=== PATIENT | male | born 1955 | race Caucasian/White ===

== ENCOUNTER 2021-10-22 12:21 | Inpatient (IN) | payer MEDICARE, OTHER ==
--- NOTE | 2021-10-22 12:42 | ED ---
General Adult HPI - General Chief complaint: Arrhythmia/Palpitations Stated complaint: Vtach/heart monitor Time Seen by Provider: 10/22/21 12:27 Source: patient, family, RN notes reviewed Mode of arrival: wheelchair Limitations: no limitations - History of Present Illness Initial comments: Patient is a pleasant 66-year-old male presenting to the emergency department with concerns with abnormal heart rate. Patient was on heart monitor and did receive a call concerning for V. tach with a heart rate of 220. Patient has been having very mild discomfort in his chest and occasional palpitations the past day or 2. Patient feels only a little bit lightheaded at this time. Patient states when symptoms worsen he does feel near syncopal. - Related Data Home Medications Medication Instructions Recorded Confirmed lisinopriL [Zestril] 5 mg PO DAILY 11/17/14 11/17/14 Previous Rx's Medication Instructions Recorded carvediloL [Coreg] 6.25 mg PO AC-BID #60 tab 06/25/14 Magnesium Chloride [Slow-Mag] 64 mg PO DAILY #9 tablet.er 11/21/14 Sotalol [Betapace] 120 mg PO BID@0600,1800 #9 tab 11/21/14 Spironolactone [Aldactone] 12.5 mg PO DAILY #9 tab 11/21/14 carvediloL [Coreg] 3.125 mg PO BID-W/MEALS #9 tab 11/21/14 lisinopriL [Zestril] 2.5 mg PO Q24H tab 11/21/14 Allergies Allergy/AdvReac Type Severity Reaction Status Date / Time atorvastatin calcium AdvReac muscle Verified 10/22/21 12:24 [From Lipitor] cramps Review of Systems ROS Statement: Those systems with pertinent positive or pertinent negative responses have been documented in the HPI. ROS Other: All systems not noted in ROS Statement are negative. Constitutional: Denies: fever Eyes: Denies: eye pain ENT: Denies: ear pain Respiratory: Denies: cough Cardiovascular: Reports: as per HPI, chest pain Endocrine: Denies: fatigue Gastrointestinal: Denies: abdominal pain Genitourinary: Denies: dysuria Musculoskeletal: Denies: back pain Skin: Denies: rash Neurological: Denies: headache Past Medical History Additional Past Medical History / Comment(s): see Dr Seals H & P, hx. migrai alfredo, sinus problems History of Any Multi-Drug Resistant Organisms: None Reported Past Surgical History: Heart Catheterization, Orthopedic Surgery Additional Past Surgical History / Comment(s): right knee surg and left ankle s urgery Past Anesthesia/Blood Transfusion Reactions: No Reported Reaction Past Psychological History: No Psychological Hx Reported Past Alcohol Use History: Occasional Past Drug Use History: None Reported - Past Family History Father Family Medical History: Cancer Additional Family Medical History / Comment(s): pancreas General Exam Limitations: no limitations General appearance: alert, in no apparent distress Head exam: Present: normocephalic Eye exam: Present: normal appearance, PERRL Neck exam: Present: normal inspection Respiratory exam: Present: normal lung sounds bilaterally Cardiovascular Exam: Present: regular rate, normal rhythm Expanded Peripheral pulses: 2+: Radial (R), Radial (L), Posterior Tibialis (R), Posterior Tibialis (L), Dorsalis Pedis (R), Dorsalis Pedis (L) GI/Abdominal exam: Present: soft. Absent: tenderness Extremities exam: Present: normal inspection. Absent: pedal edema, calf tenderness Neurological exam: Present: alert Psychiatric exam: Present: normal affect, normal mood Skin exam: Present: normal color Course Vital Signs 10/22/21 10/22/21 12:24 12:42 Temperature 98.3 F Pulse Rate 54 L 65 Respiratory 16 18 Rate Blood Pressure 103/65 135/77 O2 Sat by Pulse 97 97 Oximetry - Reevaluation(s) Reevaluation #1: 10/22/21 12:42 Dr. Romero is present and evaluating patient. EKG Findings - EKG Comments: EKG Findings:: Sinus rhythm with a rate of 68. FL 184. QRS 114. QT 391. QTC 407. Normal axis. Normal QRS. No acute ST change. Medical Decision Making - Medical Decision Making Patient reevaluated and updated. Case was again discussed with Dr. Romero who will consider taking patient later for heart catheterization. Dr. Benjamin has been paged for admission covering Dr. Coppola. - Lab Data Result diagrams: 10/22/21 12:47 10/22/21 12:47 Lab Results 10/22/21 10/22/21 10/22/21 Range/Units 12:47 12:47 12:47 WBC 5.3 (3.8-10.6) k/uL RBC 3.89 L (4.30-5.90) m/uL Hgb 12.0 L (13.0-17.5) gm/dL Hct 35.5 L (39.0-53.0) % MCV 91.3 (80.0-100.0) fL MCH 30.8 (25.0-35.0) pg MCHC 33.7 (31.0-37.0) g/dL RDW 12.7 (11.5-15.5) % Plt Count 326 (150-450) k/uL MPV 6.9 Neutrophils % 71 % Lymphocytes % 17 % Monocytes % 6 % Eosinophils % 3 % Basophils % 1 % Neutrophils # 3.8 (1.3-7.7) k/uL Lymphocytes # 0.9 L (1.0-4.8) k/uL Monocytes # 0.3 (0-1.0) k/uL Eosinophils # 0.2 (0-0.7) k/uL Basophils # 0.1 (0-0.2) k/uL PT 10.8 (9.0-12.0) sec INR 1.0 (<1.2) APTT 23.3 (22.0-30.0) sec Sodium 139 (137-145) mmol/L Potassium 4.0 (3.5-5.1) mmol/L Chloride 104 (98-107) mmol/L Carbon Dioxide 29 (22-30) mmol/L Anion Gap 6 mmol/L BUN 11 (9-20) mg/dL Creatinine 0.55 L (0.66-1.25) mg/dL Est GFR (CKD-EPI)AfAm >90 (>60 ml/min/1.73 sqM) Est GFR (CKD-EPI)NonAf >90 (>60 ml/min/1.73 sqM) Glucose 103 H (74-99) mg/dL Calcium 8.8 (8.4-10.2) mg/dL Magnesium 1.9 (1.6-2.3) mg/dL Total Bilirubin 0.4 (0.2-1.3) mg/dL AST 26 (17-59) U/L ALT 22 (4-49) U/L Alkaline Phosphatase 106 (38-126) U/L Troponin I (0.000-0.034) ng/mL Total Protein 6.4 (6.3-8.2) g/dL Albumin 3.6 (3.5-5.0) g/dL Free T4 1.33 (0.78-2.19) ng/dL Free T3 pg/mL 3.9 (2.8-5.3) pg/ml 10/22/21 Range/Units 12:47 WBC (3.8-10.6) k/uL RBC (4.30-5.90) m/uL Hgb (13.0-17.5) gm/dL Hct (39.0-53.0) % MCV (80.0-100.0) fL MCH (25.0-35.0) pg MCHC (31.0-37.0) g/dL RDW (11.5-15.5) % Plt Count (150-450) k/uL MPV Neutrophils % % Lymphocytes % % Monocytes % % Eosinophils % % Basophils % % Neutrophils # (1.3-7.7) k/uL Lymphocytes # (1.0-4.8) k/uL Monocytes # (0-1.0) k/uL Eosinophils # (0-0.7) k/uL Basophils # (0-0.2) k/uL PT (9.0-12.0) sec INR (<1.2) APTT (22.0-30.0) sec Sodium (137-145) mmol/L Potassium (3.5-5.1) mmol/L Chloride (98-107) mmol/L Carbon Dioxide (22-30) mmol/L Anion Gap mmol/L BUN (9-20) mg/dL Creatinine (0.66-1.25) mg/dL Est GFR (CKD-EPI)AfAm (>60 ml/min/1.73 sqM) Est GFR (CKD-EPI)NonAf (>60 ml/min/1.73 sqM) Glucose (74-99) mg/dL Calcium (8.4-10.2) mg/dL Magnesium (1.6-2.3) mg/dL Total Bilirubin (0.2-1.3) mg/dL AST (17-59) U/L ALT (4-49) U/L Alkaline Phosphatase (38-126) U/L Troponin I <0.012 (0.000-0.034) ng/mL Total Protein (6.3-8.2) g/dL Albumin (3.5-5.0) g/dL Free T4 (0.78-2.19) ng/dL Free T3 pg/mL (2.8-5.3) pg/ml - Radiology Data Radiology results: image reviewed Disposition Clinical Impression: Ventricular tachycardia, Chest pain Disposition: ADMITTED IP TO THIS [facility] Condition: Serious Is patient prescribed a controlled substance at d/c from ED?: No Referrals: Constantin Coppola MD [Primary Care Provider] - 1-2 days Time of Disposition: 13:38
[2021-10-22 13:01] LABS: Basophils # (A) 0.1 k/uL (0-0.2); Basophils % (A) 1 %; Eosinophils # (A) 0.2 k/uL (0-0.7); Eosinophils % (A) 3 %; HCT 35.5 % (39.0-53.0); Lymphocytes # (A) 0.9 k/uL (1.0-4.8); Lymphocytes % (A) 17 %; MCH 30.8 pg (25.0-35.0); MCHC 33.7 g/dL (31.0-37.0); MCV 91.3 fL (80.0-100.0); Mean Platelet Volume 6.9; Monocytes # (A) 0.3 k/uL (0-1.0); Monocytes % (A) 6 %; Neutrophils # (A) 3.8 k/uL (1.3-7.7); Neutrophils % (A) 71 %; Platelet Count 326 k/uL (150-450); RBC 3.89 m/uL (4.30-5.90); RDW 12.7 % (11.5-15.5); WBC 5.3 k/uL (3.8-10.6)
[2021-10-22 13:12] LABS: ALT 22 U/L (4-49); AST 26 U/L (17-59); African American GFR (CKD) >90 (>60 ml/min/1.73 sqM); Albumin 3.6 g/dL (3.5-5.0); Alkaline Phosphatase 106 U/L (38-126); Anion Gap 6 mmol/L; Blood Urea Nitrogen 11 mg/dL (9-20); Calcium 8.8 mg/dL (8.4-10.2); Carbon Dioxide 29 mmol/L (22-30); Chloride 104 mmol/L (98-107); Glucose 103 mg/dL (74-99); Magnesium 1.9 mg/dL (1.6-2.3); Non-African American GFR(CKD) >90 (>60 ml/min/1.73 sqM); Sodium 139 mmol/L (137-145); Total Bilirubin 0.4 mg/dL (0.2-1.3); Total Protein 6.4 g/dL (6.3-8.2)
[2021-10-22 13:15] LABS: Partial Thromboplastin Time 23.3 sec (22.0-30.0); Prothrombin Time 10.8 sec (9.0-12.0)
[2021-10-22 13:29] LABS: T4, Free (Free Thyroxine) 1.33 ng/dL (0.78-2.19)
[2021-10-22] MEDS ORDERED: NALOXONE 0.4 MG/ML 1 ML VIAL IV PRN (13:39)
[2021-10-22] MEDS: SODIUM CHLORIDE 0.9% 1,000 ML IV SCH ×2 (13:54→21:46)
--- NOTE | 2021-10-22 13:55 | XR ---
EXAMINATION TYPE: XR chest 2V DATE OF EXAM: 10/22/2021 COMPARISON: Chest x-ray May 02, 2012 HISTORY: Dysrhythmia. TECHNIQUE: Frontal and lateral views of the chest are obtained. FINDINGS: There is mild chronic parenchymal change without suspicious new focal air space opacity, p leural effusion, or pneumothorax seen. I suspect two new small adjacent nodules lateral right upper lung. Cardiac silhouette size remains within normal limits. The osseous structures are intact. IMPRESSION: No acute process. Possible new lateral right upper lung nodules. Nonemergent follow-up c hest CT advised to rule out neoplasm.
[2021-10-22] MEDS ORDERED: ALPRAZolam 0.25 MG TAB PO PRN (14:13)
[2021-10-22] MEDS ORDERED: ASPIRIN 325 MG TAB PO STA (14:13)
[2021-10-22] MEDS ORDERED: NITROGLYCERIN SL TABS 0.4 MG TAB SUBLINGUAL PRN ×2 (14:13→18:32)
[2021-10-22] MEDS ORDERED: ALPRAZolam 0.5 MG TAB PO PRN (14:13)
[2021-10-22] MEDS: SODIUM CHLORIDE 0.9% 1,000 ML in EMPTY BAG 1 BAG IV SCH (14:31)
--- NOTE | 2021-10-22 14:40 | P.CRDCN ---
History of Present Illness History of present illness: HISTORY OF PRESENTING ILLNESS This is a pleasant 66-year-old male past medical history significant for ventricular arrhythmia/nonsustained ventricular tachycardia status post ablation 2014, nonischemic cardiomyopathy, hypertension, dyslipidemia. He follows in the office with Dr. Romero. We have been asked to see in consultation for [facility]. Patient presents emergency department after a near syncopal episode with symptoms of dizziness and feeling as if he may pass out. Patient has had recu rrent episodes. He was evaluated by Dr. Romero and underwent placement of an event monitor. Yesterday morning around 10am patient had acute onset dizziness, and felt as if he may black out, family witnesses episode and noticed his heart beating rapidly. Patient did not lose conciousness, he states it took him about 10 minutes to feel able to stand and walk. He was later received a call that he went into [facility] and to present to the emergency department. Patient states he has had 3 episodes prior to his event monitor placed and this is the 4th occurrance. He denies any chest pain, nausea, diaphoresis, vomiting. He denies any history of CAD, [place], Stroke or diabetes. No significant family cardiac history. He has never loss consciousness with these episodes. Event monitor report revealed ventricular tachycardia greater than 60 seconds on 10/21 at 12:30Am overnight. Another episode of ventricular tachycardia 18 beats noted on 10/21 at 9:26 AM DIAGNOSTICS EKG on admission reveals sinus rhythm HR 68, non-specific T wave abnormality, no prolonged QT Telemetry tracings indicate sinus mechanism, no further Vtach noted Chest xray no acute heart failure or consolidation noted, 2 small adjacent nodu les lateral right upper lung Laboratory reviewed, Troponin negative, WBC 5.3, hemoglobin 12, platelets 326, sodium 139, potassium 4.0, BUN 11, serum creatinine 0.5, magnesium 1.9, troponin negative, TSH within normal limits Current home cardiac medications include pravastatin 80 mg daily, sotalol 80 mg twice a day, aspirin 81 mg twice a day. Most recent stress test in the office 09/06/2021 revealed no evidence of stress- induced ischemia. Normal left ventricular systolic function. Echocardiogram 04/2019 in the office revealed normal EF, moderate mitral regurgitation Cardiac catheterization in 2012 revealed normal coronary arteries REVIEW OF SYSTEMS At the time of my exam, all symptoms have resolved. CONSTITUTIONAL: Denies fever or chills. CARDIOVASCULAR: Denies chest pain, shortness of breath, orthopnea, PND or palpitations. RESPIRATORY: Denies cough. GASTROINTESTINAL: Denies abdominal pain, diarrhea, constipation, nausea or vomiting. MUSCULOSKELETAL: Denies myalgias. NEUROLOGIC: Denies numbness, tingling, headacbe or weakness. ENDOCRINE: Denies fatigue, weight change, polydipsia or polyurina. GENITOURINARY: Denies burning, hematuria or urgency with micturation. HEMATOLOGIC: Denies history of anemia or bleeding. PHYSICAL EXAMINATION Blood pressure 135/77, heart 65, afebrile, saturation 97% on room air CONSTITUTIONAL: No apparent distress. HEENT: Head is normocephalic. Pupils are equal, round. Sclerae anicteric. Mucous membranes of the mouth are moist. No JVD. No carotid bruit. CHEST EXAMINATION: Lungs are clear to auscultation. No chest wall tenderness is noted on palpation or with deep breathing. HEART EXAMINATION: Regular rate and rhythm. S1, S2 heard. No murmurs, gallops or rub. ABDOMEN: Soft, nontender. Positive bowel sounds. EXTREMITIES: 2+ peripheral pulses, no lower extremity edema and no calf tenderness. NEUROLOGIC EXAMINATION: Patient is awake, alert and oriented x3. ASSESSMENT Near syncope Sustained ventricular tachycardia Episodes of non-sustained ventricular tachycardia History of nonsustained ventricular tachycardia status post ablation in 2015 History of nonischemic cardiomyopathy with improved EF Dyslipidemia PLAN Plan for cardiac catheterization to rule out ischemia with Dr. Romero today, patient is agreeable Obtain 2D echocardiogram and doppler study to assess cardiac structure and function. Hold Sotalol for now pending cath I have discussed the risks, benefits and alternative therapies for the above- mentioned procedure and for both sedation/analgesia as well as necessary blood product administration, if indicated, as they pertain to this patient. The patient has indicated understanding and acceptance of the risks and procedures discussed. Questions have been answered appropriately and he is agreeable to move forward with the above-stated procedure. Further recommendations based on clinical course Nurse practitioner note has been reviewed by physician. Signing provider agrees with the documented findings, assessment, and plan of care. Past Medical History Additional Past Medical History / Comment(s): see Dr Seals H & P, hx. migraines, sinus problems History of Any Multi-Drug Resistant Organisms: None Reported Past Surgical History: Heart Catheterization, Orthopedic Surgery Additional Past Surgical History / Comment(s): right knee surg and left ankle surgery Past Anesthesia/Blood Transfusion Reactions: No Reported Reaction Past Psychological History: No Psychological Hx Reported Past Alcohol Use History: Occasional Past Drug Use History: None Reported - Past Family History Father Family Medical History: Cancer Additional Family Medical History / Comment(s): pancreas Medications and Allergies Home Medications Medication Instructions Recorded Confirmed Type carvediloL [Coreg] 6.25 mg PO AC-BID #60 tab 06/25/14 11/17/14 Rx lisinopriL [Zestril] 5 mg PO DAILY 11/17/14 11/17/14 History Magnesium Chloride [Slow-Mag] 64 mg PO DAILY #9 tablet.er 11/21/14 Rx Sotalol [Betapace] 120 mg PO BID@0600,1800 #9 tab 11/21/14 Rx Spironolactone [Aldactone] 12.5 mg PO DAILY #9 tab 11/21/14 Rx carvediloL [Coreg] 3.125 mg PO BID-W/MEALS #9 tab 11/21/14 Rx lisinopriL [Zestril] 2.5 mg PO Q24H tab 11/21/14 Rx Allergies Allergy/AdvReac Type Severity Reaction Status Date / Time atorvastatin calcium AdvReac muscle Verified 10/22/21 12:24 [From Lipitor] cramps Physical Exam Vitals: Vital Signs Temp Pulse Resp BP Pulse Ox 10/22/21 12:42 65 18 135/77 97 10/22/21 12:24 98.3 F 54 L 16 103/65 97 Intake and Output 10/21/21 10/22/21 10/22/21 22:59 06:59 14:59 Other: Weight 77.111 kg Results 10/22/21 12:47 10/22/21 12:47 Cardiac Enzymes 10/22/21 10/22/21 Range/Units 12:47 12:47 AST 26 (17-59) U/L Troponin I <0.012 (0.000-0.034) ng/mL Coagulation 10/22/21 Range/Units 12:47 PT 10.8 (9.0-12.0) sec APTT 23.3 (22.0-30.0) sec CBC 10/22/21 Range/Units 12:47 WBC 5.3 (3.8-10.6) k/uL RBC 3.89 L (4.30-5.90) m/uL Hgb 12.0 L (13.0-17.5) gm/dL Hct 35.5 L (39.0-53.0) % Plt Count 326 (150-450) k/uL Comprehensive Metabolic Panel 10/22/21 Range/Units 12:47 Sodium 139 (137-145) mmol/L Potassium 4.0 (3.5-5.1) mmol/L Chloride 104 (98-107) mmol/L Carbon Dioxide 29 (22-30) mmol/L BUN 11 (9-20) mg/dL Creatinine 0.55 L (0.66-1.25) mg/dL Glucose 103 H (74-99) mg/dL Calcium 8.8 (8.4-10.2) mg/dL AST 26 (17-59) U/L ALT 22 (4-49) U/L Alkaline Phosphatase 106 (38-126) U/L Total Protein 6.4 (6.3-8.2) g/dL Albumin 3.6 (3.5-5.0) g/dL Current Medications Generic Name Dose Route Start Last Admin Trade Name Freq PRN Reason Stop Dose Admin Sodium Chloride 1,000 mls @ 75 mls/hr 10/22/21 13:45 Saline 0.9% IV .[id number] MADELIN Naloxone HCl 0.2 mg 10/22/21 13:39 Naloxone 0.4 Mg/Ml 1 Ml Vial IV Q2M PRN Opioid Reversal Intake and Output 10/21/21 10/22/21 10/22/21 22:59 06:59 14:59 Other: Weight 77.111 kg Patient Weight 10/23/21 06:59 Weight 77.111 kg 10/22/21 12:47 10/22/21 12:47
[2021-10-22] MEDS ORDERED: HEPARIN SODIUM 1,000 UN/ML (10ML VL) ONE (16:14)
[2021-10-22] MEDS ORDERED: VERAPAMIL 2.5 MG/ML 2 ML AMP ONE (16:14)
--- NOTE | 2021-10-22 16:31 | P.HPIM ---
History of Present Illness H&P Date: 10/22/21 Chief Complaint: Near syncope This is a pleasant 66-year-old patient who follows with Dr. Constantin Coppola. Chronic stable medical conditions include hypertension, hyperlipidemia, osteomyelitis. Patient had a left knee replacement done by Dr. Medina out of [facility] on September 27. Patient is accompanied in the ER by his and daughter. Patient did have a nonsustained ventricular tachycardia ablation in 2014. Also no nausea no ischemic cardiomyopathy and follows with Dr. Johnston local grounds manager. Patient been having episodes of dizziness and near passing out. Episodes have been recurrent. Patient had a event monitor placed. He had another episode yesterday morning and nearly passed out. Heart was running fast. Patient has not lost consciousness. It was a few minutes after which patient felt back to his normal self. Patient was called to say that he had an episode of V. tach. No prior history of CAD. Event monitor revealed episodes of forgetting to 60 seconds and another episode for 18 beats. Patient due to for cardiac catheterization later today.. No chest pain or shortness of breath. 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 Family history: Cancer pancreas Physical examination: VITAL SIGNS: 98.3, 54, 16, 10 3 x 65, 97% room air GENERAL: And BMI 24.4, laying in bed awake, comfortable. EYES: Pupils equal. Conjunctiva normal. HEENT: External appearance of nose and ears normal, oral cavity grossly normal. NECK: JVD not raised; masses not palpable. HEART: First and second heart sounds are normal; no edema. LUNGS: Respiratory rate normal; clear to auscultation. ABDOMEN: Soft, nontender, liver spleen not palpable, no masses palpable. PSYCH: Alert and oriented x3; mood and affect normal. MUSCULOSKELETAL:No Clubbing/cyanosis;muscles-grossly intact. Incision of the left knee with Steri-Strips. Evidence of OA no joints NEUROLOGICAL: Cranial nerves grossly intact; no facial asymmetry, power and sensation grossly intact. LYMPHATICS: No lymph nodes palpable in the axilla and neck INVESTIGATIONS, reviewed in the clinical context: EKG tracing personally reviewed by me-normal sinus rhythm. Chest x-ray film personally reviewed by me-lung rivers clear WBC 5.3 hemoglobin 12 platelets 326 potassium 4 creatinine 0.5 Troponin I less than 0.0122 TSH 1.5 Assessment and plan: -Recurrent ventricular tachycardia/sustained. Patient been having episodes of near syncope dizziness for some time. This was picked up on event monitor. Patient for a cardiac catheterization today. Cardiology consulted. -Hyperlipidemia Pravachol 80 mg daily at bedtime -Primary osteoarthritis Tylenol when necessary -09/27/2021 patient underwent left total knee arthroplasty -IV heparin monitoring Follow PTT Resume home medications. Hold sotalol. IV heparin. For cardiac catheterization later today. Care was discussed with the patient and family the bedside. Follow with cardiology. Past Medical History Past Medical History: Hyperlipidemia, Hypertension Additional Past Medical History / Comment(s): Ventricular arrhythmia/nonsustained VT, NSVT, nonischemic cardiomyopathy, mitral valve prolapse, "dizzy spells", past HTN but no longer, sinus problems, migraines History of Any Multi-Drug Resistant Organisms: None Reported Past Surgical History: Cardiac Ablation, Heart Catheterization, Joint Replacement, Orthopedic Surgery Additional Past Surgical History / Comment(s): R knee ligament/tendon reconstruction with screw and now total R knee, recent total L knee 09/2021, L ankle total joint Past Anesthesia/Blood Transfusion Reactions: No Reported Reaction Smoking Status: Never smoker - Past Family History Mother Family Medical History: No Reported History Additional Family Medical History / Comment(s): Mother was healthy Father Family Medical History: Cancer Additional Family Medical History / Comment(s): pancreas Medications and Allergies Home Medications Medication Instructions Recorded Confirmed Type Aspirin EC [Ecotrin Low Dose] 81 mg PO BID 10/22/21 10/22/21 History Docusate [Colace] 100 mg PO BID PRN 10/22/21 10/22/21 History Pravastatin Sodium [Pravachol] 80 mg PO HS 10/22/21 10/22/21 History Sotalol [Betapace] 80 mg PO BID 10/22/21 10/22/21 History Allergies Allergy/AdvReac Type Severity Reaction Status Date / Time atorvastatin calcium AdvReac muscle Verified 10/22/21 14:24 [From Lipitor] cramps Physical Exam Vitals: Vital Signs Temp Pulse Resp BP Pulse Ox 10/22/21 14:39 69 18 116/74 97 10/22/21 12:42 65 18 135/77 97 10/22/21 12:24 98.3 F 54 L 16 103/65 97 Intake and Output 10/22/21 10/22/21 10/22/21 06:59 14:59 22:59 Other: Weight 77.111 kg 77.111 kg Results CBC & Chem 7: 10/22/21 12:47 10/22/21 12:47 Labs: Abnormal Lab Results - Last 24 Hours (Table) 10/22/21 10/22/21 Range/Units 12:47 12:47 RBC 3.89 L (4.30-5.90) m/uL Hgb 12.0 L (13.0-17.5) gm/dL Hct 35.5 L (39.0-53.0) % Lymphocytes # 0.9 L (1.0-4.8) k/uL Creatinine 0.55 L (0.66-1.25) mg/dL Glucose 103 H (74-99) mg/dL Thrombosis Risk Factor Assmnt - Choose All That Apply Any of the Below Risk Factors Present?: Yes Other Risk Factors: Yes Each Risk Factor Represents 2 Points: Age 61-74 years Other congenital or acquired thrombophilia - If yes, enter type in comment: No Thrombosis Risk Factor Assessment Total Risk Factor Score: 2 Thrombosis Risk Factor Assessment Level: Low Risk
[2021-10-22] MEDS ORDERED: MIDAZOLAM 2 MG/2 ML VIAL IV ONE (17:42)
[2021-10-22] MEDS ORDERED: LIDOCAINE 1% INJ 10MG/ML (5 ML VIAL-PF) SQ ONE (17:43)
[2021-10-22] MEDS ORDERED: VERAPAMIL SYRINGE (5 MG/10 ML) INTRAARTER ONE (17:44)
[2021-10-22] MEDS ORDERED: IV FLUID CONTINUATION 850 ML IV ONE (17:47)
[2021-10-22] MEDS: HEPARIN SODIUM 1,000 UN/ML (10ML VL) IV ONE ×3 (17:47→18:29)
[2021-10-22] MEDS ORDERED: IOPAMIDOL-370 125ML BTL INJ ONE (18:14)
[2021-10-22] MEDS ORDERED: CLOPIDOGREL 75 MG TAB ONE (18:20)
[2021-10-22] MEDS ORDERED: IOPAMIDOL-370 100ML BTL INJ ONE (18:22)
[2021-10-22] MEDS ORDERED: CLOPIDOGREL 75 MG TAB PO ONE (18:22)
[2021-10-22] MEDS ORDERED: MAG HYDROX/AL HYDROX/SIMETH 30 ML CUP PO PRN (18:32)
[2021-10-22] MEDS ORDERED: RX INFO: IV CONTRAST WAS GIVEN 1 EACH MISC MISCELLANE PRN (18:32)
[2021-10-22] MEDS ORDERED: ATROPINE SULFATE 0.1 MG/ML 10ML SYRINGE IV PRN (18:32)
[2021-10-22] MEDS ORDERED: ZOLPIDEM 5 MG TAB PO PRN (18:32)
[2021-10-22] MEDS ORDERED: SODIUM CHLORIDE 0.9% 1,000 ML in EMPTY BAG 1 BAG IV SCH (18:45)
--- NOTE | 2021-10-22 18:58 | CA ---
Transthoracic Echo Report Name: Mike Francisco Age: 66 Gender: M : 1955 Exam Date: 10/22/2021 14:35 Exam Location: [facility] Ht (in): 60 Wt (lb): 170 Ordering Physician: Yasmeen Parish Attending/Referring Phys: Excellence Consultant Tamia Benjamin RDCS Procedure CPT: Indications: syncope. V tach. LV function Cardiac Hx: Technical Quality: Contrast 1: Total Dose (mL): Contrast 2: Total Dose (mL): MEASUREMENTS (Male / Female) Normal Values 2D ECHO LV Diastolic Diameter PLAX 5.5 cm 4.2 - 5.9 / 3.9 - 5.3 cm LV Systolic Diameter PLAX 4.3 cm IVS Diastolic Thickness 1.2 cm 0.6 - 1.0 / 0.6 - 0.9 cm LVPW Diastolic Thickness 1.5 cm 0.6 - 1.0 / 0.6 - 0.9 cm LV Relative Wall Thickness 0.5 RV Internal Dim ED PLAX 3.9 cm LA Systolic Diameter LX 3.9 cm 3.0 - 4.0 / 2.7 - 3.8 cm LA Volume 68.1 cm??? 18 - 58 / 22 - 52 cm??? M-MODE Aortic Root Diameter MM 3.6 cm MV E Point Septal Separation 0.9 cm AV Cusp Separation MM 2.5 cm DOPPLER MV Area PHT 3.3 cm??? Mitral E Point Velocity 44.2 cm/s Mitral A Point Velocity 75.2 cm/s Mitral E to A Ratio 0.6 MV Deceleration Time 231.4 ms MV E' Velocity 4.9 cm/s Mitral E to MV E' Ratio 9.0 TR Peak Velocity 233.6 cm/s TR Peak Gradient 21.8 mmHg Right Ventricular Systolic Press 26.8 mmHg FINDINGS Left Ventricle Normal Left ventricular size, mild wall thickness, left ventricular ejection fraction is estimated at 50-55%. Right Ventricle Normal right ventricular size and function. Right Atrium Normal right atrial size. Left Atrium Mildly increased left atrial volume. Mitral Valve Mild mitral valve prolapse. Moderate mitral regurgitation. Aortic Valve Trileaflet aortic valve. Tricuspid Valve Structurally normal tricuspid valve. Mild tricuspid regurgitation. Pulmonic Valve Pulmonic valve not well visualized. Pericardium Normal pericardium. Aorta Normal size aortic root and proximal ascending aorta. CONCLUSIONS Normal left ventricular dimension and systolic function Moderate mitral regurgitation Previewed by: Dr. Glenn Romero MD (Electronically Signed) Final Date: 22 October 2021 18:57
--- NOTE | 2021-10-22 19:03 | P.PCN ---
Date of Procedure: 10/22/21 Operative Findings: CARDIAC CATHETERIZATION AND PERCUTANEOUS CORONARY INTERVENTION PERFORMING PHYSICIAN: Glenn Romero MD, [facility] PROCEDURE PERFORMED: 1. Selective right and left coronary angiogram 2. Left heart catheterization 3. Successful stenting of proximal LCx using 2.5 x 23 mm Xience WILMER which with an excellent angiographic results INDICATION: This is a 66-year-old gentleman with carotid atherosclerosis as well as hypertension and dyslipidemia and history of cardiac arrhythmia underwent in the past PVC ablation was seen in the office recently for recurrent syncope concerning for cardiac syncope. He underwent an event monitor and yesterday he did have another episode of syncope associated with sustained ventricular tachycardia. COMPLICATION: None APPROACH: The right radial artery LEVEL OF SEDATION: Moderate with the sedation time off 40 minutes PROCEDURE DESCRIPTION: After obtaining an informed consent the patient was brought to the cardiac geophysical laboratory director. The right radial artery was cannulated using micropuncture technique, the micro- puncture wire passed easily then I placed a 6-Swiss sheath. I gave the patient 2 mg of verapamil intra-arterial and initially 3000 use of heparin IV and then additional 4000 use of heparin IV. Continuous ACT monitoring was performed throughout the procedure. Selective right and left coronary angiogram performed using JR4 and JL 3.5. Subsequently I did left heart catheterization using 6- Swiss pigtail catheter. Then I intervened on the left circumflex. SELECTIVE CORONARY ANGIOGRAM: The right coronary artery: Is a large caliber vessel and a dominant vessel. 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 The left circumflex proximally has a tight lesion appeared to be in the range of 70-80%. After that is angiographically normal The left anterior descending artery: Is angiographically normal. Gives rises into the first and second diagonal branches and both appeared to be angiographically normal HEMODYNAMICS: The LVEDP was about 16 mmHg was no significant gradient across aortic valve PCI OF THE LCx: Anticoagulation was initiated using heparin with continuous ACT monitoring. Subsequently I did engage the left circumflex using an a.l. 0.7 guide. I wire it using a run-through wire. Subsequently I did direct stenting of the lesion using 2.5 x 23 mm stent where the stent was positioned under fluoroscopy guidance and deployed under fluoroscopy guidance. 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 Severe disease involving the proximal left circumflex. I performed successful stenting #2 mildly elevated left-sided filling pressure POSTPROCEDURE MANAGEMENT: #1 dual antiplatelet therapy using aspirin and Plavix for at least 6 month #2 aggressive cholesterol control #3 follow-up with the patient
[2021-10-22] MEDS ORDERED: ATORVASTATIN 80 MG TAB PO SCH (21:00)
[2021-10-22] MEDS: SOTALOL 80 MG TAB PO SCH (21:45)
[2021-10-22] MEDS: PRAVASTATIN SODIUM 80 MG TAB PO SCH (21:46)
--- NOTE | 2021-10-23 03:47 | P.PN ---
Subjective HISTORY OF PRESENTING ILLNESS This is a pleasant 66-year-old male past medical history significant for ventricular arrhythmia/nonsustained ventricular tachycardia status post ablation 2014, nonischemic cardiomyopathy, hypertension, dyslipidemia. He follows in the office with Dr. Romero. We have been asked to see in consultation for V tach. Patient presents emergency department after a near syncopal episode with symptoms of dizziness and feeling as if he may pass out. Patient has had recurrent episodes. He was evaluated by Dr. Romero and underwent placement of an event monitor. Yesterday morning around 10am patient had acute onset dizziness, and felt as if he may black out, family witnesses episode and noticed his heart beating rapidly. Patient did not lose conciousness, he states it took him about 10 minutes to feel able to stand and walk. He was later received a call that he went into V Tach and to present to the emergency department. Patient states he has had 3 episodes prior to his event monitor placed and this is the 4th occurrance. He denies any chest pain, nausea, diaphoresis, vomiting. He denies any history of CAD, AR, Stroke or diabetes. No significant family cardiac history. He has never loss consciousness with these episodes. Event monitor report revealed ventricular tachycardia greater than 60 seconds on 10/21 at 12:30Am overnight. Another episode of ventricular tachycardia 18 beats noted on 10/21 at 9:26 AM DIAGNOSTICS EKG on admission reveals sinus rhythm HR 68, non-specific T wave abnormality, no prolonged QT Telemetry tracings indicate sinus mechanism, no further Vtach noted Chest xray no acute heart failure or consolidation noted, 2 small adjacent nodules lateral right upper lung Laboratory reviewed, Troponin negative, WBC 5.3, hemoglobin 12, platelets 326, sodium 139, potassium 4.0, BUN 11, serum creatinine 0.5, magnesium 1.9, troponin negative, TSH within normal limits Current home cardiac medications include pravastatin 80 mg daily, sotalol 80 mg twice a day, aspirin 81 mg twice a day. Most recent stress test in the office 09/06/2021 revealed no evidence of stress- induced ischemia. Normal left ventricular systolic function. Echocardiogram 04/2019 in the office revealed normal EF, moderate mitral regurgitation Cardiac catheterization in 2012 revealed normal coronary arteries 10/23 Patient seen and examined. Patient underwent a heart catheterization yesterday and had a 70-80% anomalous circumflex lesion and underwent successful PCI. Denies any chest pain or pressure. He was also increased on his sotalol from previous dose of 80 twice a day to 160 twice a day and added metoprolol 25 mg d aily. No significant QT prolongation noted and no significant arrhythmias noted. Heart rates mainly in the 70s to 80s. Echocardiogram performed yesterday shows normal left ventricular function with EF 50-55% with moderate mitral regurgitation. PHYSICAL EXAMINATION Vitals reviewed CONSTITUTIONAL: No apparent distress. HEENT: Head is normocephalic. Pupils are equal, round. Sclerae anicteric. Mucous membranes of the mouth are moist. No JVD. No carotid bruit. CHEST EXAMINATION: Lungs are clear to auscultation. No chest wall tenderness is noted on palpation or with deep breathing. HEART EXAMINATION: Regular rate and rhythm. S1, S2 heard. No murmurs, gallops or rub. ABDOMEN: Soft, nontender. Positive bowel sounds. EXTREMITIES: 2+ peripheral pulses, no lower extremity edema and no calf ten derness. NEUROLOGIC EXAMINATION: Patient is awake, alert and oriented x3. 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 We will however increase antiarrhythmics with increase of sotalol to 180mg twice a day as well as addition of Toprol. Monitor patient in the hospital at least until Monday and monitor QTC prolongation and for any arrhythmias. Possible discharge home Monday or Monday with event monitor. Avoid any hypokalemia or significant bradycardia which can exacerbate pro-arrhythmic state of sotalol/QT prolongation. Check EKG every 12 hours. Objective - Vital Signs Vital signs: Vital Signs Temp 98.2 F 10/23/21 00:00 Pulse 61 10/23/21 00:00 Resp 12 10/23/21 00:00 BP 101/57 10/23/21 00:00 Pulse Ox 94 L 10/23/21 00:00 FiO2 Intake & Output 10/22/21 10/22/21 10/23/21 06:59 18:59 06:59 Intake Total 100 Balance 100 Weight 77.111 kg Intake: IV 100 Other: Voiding Method Toilet # Voids 2 - Labs CBC & Chem 7: 10/22/21 12:47 10/22/21 12:47 Labs: Abnormal Lab Results - Last 24 Hours (Table) 10/22/21 10/22/21 Range/Units 12:47 12:47 RBC 3.89 L (4.30-5.90) m/uL Hgb 12.0 L (13.0-17.5) gm/dL Hct 35.5 L (39.0-53.0) % Lymphocytes # 0.9 L (1.0-4.8) k/uL Creatinine 0.55 L (0.66-1.25) mg/dL Glucose 103 H (74-99) mg/dL
[2021-10-23] MEDS ORDERED: HEPARIN SODIUM,PORCINE 10,000 UNIT in SODIUM CHLORIDE 0.9% 1,000 ML IRRIGATION PRN (07:00)
[2021-10-23] MEDS ORDERED: HEPARIN SODIUM,PORCINE 2,500 UNIT in SODIUM CHLORIDE 0.9% 250 ML IRRIGATION PRN (07:00)
[2021-10-23] MEDS: SODIUM CHLORIDE 0.9% 1,000 ML in EMPTY BAG 1 BAG IV SCH (07:20)
[2021-10-23 07:45] LABS: Basophils % (A) 0 %; Eosinophils # (A) 0.2 k/uL (0-0.7); Eosinophils % (A) 4 %; HCT 37.9 % (39.0-53.0); HGB 12.5 gm/dL (13.0-17.5); Lymphocytes % (A) 15 %; MCH 30.7 pg (25.0-35.0); Mean Platelet Volume 6.8; Monocytes # (A) 0.4 k/uL (0-1.0); Monocytes % (A) 6 %; Neutrophils # (A) 4.7 k/uL (1.3-7.7); Neutrophils % (A) 74 %; Platelet Count 321 k/uL (150-450); RBC 4.07 m/uL (4.30-5.90); RDW 12.9 % (11.5-15.5); WBC 6.3 k/uL (3.8-10.6)
[2021-10-23 07:59] LABS: African American GFR (CKD) >90 (>60 ml/min/1.73 sqM); Anion Gap 7 mmol/L; Blood Urea Nitrogen 12 mg/dL (9-20); Calcium 8.9 mg/dL (8.4-10.2); Carbon Dioxide 30 mmol/L (22-30); Chloride 105 mmol/L (98-107); Glucose 108 mg/dL (74-99); Non-African American GFR(CKD) >90 (>60 ml/min/1.73 sqM); Potassium 4.3 mmol/L (3.5-5.1); Sodium 142 mmol/L (137-145)
[2021-10-23] MEDS ORDERED: METOPROLOL SUCCINATE (ER) 25 MG TAB.ER.24H PO SCH (09:00)
[2021-10-23] MEDS: CLOPIDOGREL 75 MG TAB PO SCH (09:33)
[2021-10-23] MEDS: ASPIRIN 81 MG PO SCH (09:33)
[2021-10-23] MEDS: SOTALOL 80 MG TAB PO SCH ×2 (09:33→20:11)
[2021-10-23 11:38] VITALS: BMI 24.3
--- NOTE | 2021-10-23 15:14 | P.PN ---
Progress Note - Text Progress Note Date: 10/23/21 Chief Complaint: Near syncope This is a pleasant 66-year-old patient who follows with Dr. Constantin Coppola. Chronic stable medical conditions include hypertension, hyperlipidemia, osteomyelitis. Patient had a left knee replacement done by Dr. Medina out of [facility] on September 27. Patient is accompanied in the ER by his and daughter. Patient did have a nonsustained ventricular tachycardia ablation in 2014. Also no nausea no ischemic cardiomyopathy and follows with Dr. Johnston local trackwalker. Patient been having episodes of dizziness and near passing out. Episodes have been recurrent. Patient had a event monitor placed. He had another episode yesterday morning and nearly passed out. Heart was running fast. Patient has not lost consciousness. It was a few minutes after which patient felt back to his normal self. Patient was called to say that he had an episode of V. tach. No prior history of CAD. Event monitor revealed episodes of forgetting to 60 seconds and another episode for 18 beats. Patient due to for cardiac catheterization later today.. No chest pain or shortness of breath. 11/02/2021: Underwent cardiac catheterization yesterday. Successful stenting of the proximal left circumflex. Up in the hallway. No chest pain or dizziness. and family the bedside. Discussed at length. On sotalol. Active Medications Al Hydroxide/Mg Hydroxide (Mag Hydrox/Al Hydrox/Simeth 30 Ml Cup) 30 ml PO Q4HR PRN PRN Reason: Heartburn Alprazolam (Alprazolam 0.25 Mg Tab) 0.25 mg PO Q6HR PRN PRN Reason: Mild Anxiety Alprazolam (Alprazolam 0.5 Mg Tab) 0.5 mg PO Q6HR PRN PRN Reason: Moderate Anxiety Aspirin (Aspirin 81 Mg) 81 mg PO DAILY [facility] Last Admin: 10/23/21 09:33 Dose: 81 mg Atropine Sulfate (Atropine Sulfate 0.1 Mg/Ml 10ml Syringe) 0.5 mg IV ONCE PRN PRN Reason: Symptomatic Bradycardia Clopidogrel Bisulfate (Clopidogrel 75 Mg Tab) 75 mg PO DAILY [facility]; Protocol Last Admin: 10/23/21 09:33 Dose: 75 mg Metoprolol Succinate (Metoprolol Succinate (Er) 25 Mg Tab.Er.24h) 25 mg PO DAILY [facility] Miscellaneous Information (Rx Info: Iv Contrast Was Given 1 Each Misc) 1 each MISCELLANE DAILY PRN PRN Reason: Per Protocol Stop: 10/24/21 18:32 Naloxone HCl (Naloxone 0.4 Mg/Ml 1 Ml Vial) 0.2 mg IV Q2M PRN PRN Reason: Opioid Reversal Nitroglycerin (Nitroglycerin Sl Tabs 0.4 Mg Tab) 0.4 mg SUBLINGUAL Q5M PRN PRN Reason: Chest Pain Pravastatin Sodium (Pravastatin Sodium 80 Mg Tab) 80 mg PO HS [facility] Last Admin: 10/22/21 21:46 Dose: 80 mg Sotalol HCl (Sotalol 80 Mg Tab) 160 mg PO BID [facility] Last Admin: 10/23/21 09:33 Dose: 160 mg Zolpidem Tartrate (Zolpidem 5 Mg Tab) 5 mg PO HS PRN PRN Reason: Insomnia Past medical history to include: Nonischemic cardiomyopathy, hypertension, hyperlipidemia Social history: Retired [employer]. No smoking or alcohol. Family history: Cancer pancreas Physical examination: VITAL SIGNS: 97.9, 59, 17, 1 with 6.73, 98% room air GENERAL: Sitting up in the [facility] [employer]. comfortable. EYES: Pupils equal. Conjunctiva normal. HEENT: External appearance of nose and ears normal, oral cavity grossly normal. NECK: JVD not raised; masses not palpable. HEART: First and second heart sounds are normal; no edema. LUNGS: Respiratory rate normal; clear to auscultation. ABDOMEN: Soft, nontender, liver spleen not palpable, no masses palpable. PSYCH: Alert and oriented x3; mood and affect normal. MUSCULOSKELETAL:No Clubbing/cyanosis;muscles-grossly intact. Incision of the left knee with Steri-Strips. Evidence of OA no joints INVESTIGATIONS, reviewed in the clinical context: October 23: White was 6.3 hemoglobin 12.5 potassium 4.3 creatinine 0.60 EKG tracing personally reviewed by me-normal sinus rhythm. Chest x-ray film personally reviewed by me-lung rivers clear WBC 5.3 hemoglobin 12 platelets 326 potassium 4 creatinine 0.5 Troponin I less than 0.0122 TSH 1.5 Assessment and plan: -Recurrent ventricular tachycardia/sustained. having episodes of near syncope dizziness for some time. picked up on event monitor. Received stent to the circumflex. Continue telemetry activity as tolerated. -CAD with stent to left circumflex Aspirin, Plavix -Hyperlipidemia Pravachol 80 mg daily at bedtime -Primary osteoarthritis Tylenol when necessary -09/27/2021 patient underwent left total knee arthroplasty -IV heparin monitoring: Discontinued On sotalol. Other medications to continue. Discussed with the patient and . Increase activity. Follow telemetry.
[2021-10-23] MEDS: PRAVASTATIN SODIUM 80 MG TAB PO SCH (20:10)
[2021-10-24] MEDS: SOTALOL 80 MG TAB PO SCH ×2 (08:55→20:42)
[2021-10-24] MEDS: CLOPIDOGREL 75 MG TAB PO SCH (08:55)
[2021-10-24] MEDS: ASPIRIN 81 MG PO SCH (08:55)
--- NOTE | 2021-10-24 18:20 | P.PN ---
Subjective HISTORY OF PRESENTING ILLNESS This is a pleasant 66-year-old male past medical history significant for ventricular arrhythmia/nonsustained ventricular tachycardia status post ablation 2014, nonischemic cardiomyopathy, hypertension, dyslipidemia. He follows in the office with Dr. Romero. We have been asked to see in consultation for V tach. Patient presents emergency department after a near syncopal episode with symptoms of dizziness and feeling as if he may pass out. Patient has had recurrent episodes. He was evaluated by Dr. Romero and underwent placement of an event monitor. Yesterday morning around 10am patient had acute onset dizziness, and felt as if he may black out, family witnesses episode and noticed his heart beating rapidly. Patient did not lose conciousness, he states it took him about 10 minutes to feel able to stand and walk. He was later received a call that he went into V Tach and to present to the emergency department. Patient states he has had 3 episodes prior to his event monitor placed and this is the 4th occurrance. He denies any chest pain, nausea, diaphoresis, vomiting. He denies any history of CAD, LA, Stroke or diabetes. No significant family cardiac history. He has never loss consciousness with these episodes. Event monitor report revealed ventricular tachycardia greater than 60 seconds on 10/21 at 12:30Am overnight. Another episode of ventricular tachycardia 18 beats noted on 10/21 at 9:26 AM DIAGNOSTICS EKG on admission reveals sinus rhythm HR 68, non-specific T wave abnormality, no prolonged QT Telemetry tracings indicate sinus mechanism, no further Vtach noted Chest xray no acute heart failure or consolidation noted, 2 small adjacent nodules lateral right upper lung Laboratory reviewed, Troponin negative, WBC 5.3, hemoglobin 12, platelets 326, sodium 139, potassium 4.0, BUN 11, serum creatinine 0.5, magnesium 1.9, troponin negative, TSH within normal limits Current home cardiac medications include pravastatin 80 mg daily, sotalol 80 mg twice a day, aspirin 81 mg twice a day. Most recent stress test in the office 09/06/2021 revealed no evidence of stress- induced ischemia. Normal left ventricular systolic function. Echocardiogram 04/2019 in the office revealed normal EF, moderate mitral regurgitation Cardiac catheterization in 2012 revealed normal coronary arteries 10/23 Patient seen and examined. Patient underwent a heart catheterization yesterday and had a 70-80% anomalous circumflex lesion and underwent successful PCI. Denies any chest pain or pressure. He was also increased on his sotalol from previous dose of 80 twice a day to 160 twice a day and added metoprolol 25 mg d aily. No significant QT prolongation noted and no significant arrhythmias noted. Heart rates mainly in the 70s to 80s. Echocardiogram performed yesterday shows normal left ventricular function with EF 50-55% with moderate mitral regurgitation. 10/24 Patient seen and examined. Patient denies any chest pain or pressure. Denies any lightheadedness. Telemetry reveals sinus rhythm with heart rates in the 50s to 60s range. Has been walking the halls without any difficulty. QTC this morning 461. PHYSICAL EXAMINATION Vitals reviewed CONSTITUTIONAL: No apparent distress. HEENT: Head is normocephalic. Pupils are equal, round. Sclerae anicteric. Mucous membranes of the mouth are moist. No JVD. No carotid bruit. CHEST EXAMINATION: Lungs are clear to auscultation. No chest wall tenderness is noted on palpation or with deep breathing. HEART EXAMINATION: Regular rate and rhythm. S1, S2 heard. No murmurs, gallops or rub. ABDOMEN: Soft, nontender. Positive bowel sounds. EXTREMITIES: 2+ peripheral pulses, no lower extremity edema and no calf tenderness. NEUROLOGIC EXAMINATION: Patient is awake, alert and oriented x3. 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 Continue with dual antiplatelets QTC 461. Continue with sotalol 160 mg twice a day dosing. Continue to monitor for another 24 hours. Hopeful discharge 10/25. Further recommendations from electrophysiology. Objective - Vital Signs Vital signs: Vital Signs Temp 97.4 F L 10/24/21 16:00 Pulse 64 10/24/21 16:00 Resp 15 10/24/21 16:00 BP 111/64 10/24/21 16:00 Pulse Ox 100 10/24/21 16:00 FiO2 Intake & Output 10/23/21 10/24/21 10/24/21 18:59 06:59 18:59 Intake Total 1378 240 Balance 1378 240 Weight 77.111 kg 76.3 kg Intake: Oral 1378 240 Other: Voiding Method Toilet Toilet Toilet # Voids 3 - Labs CBC & Chem 7: 10/23/21 07:21 10/23/21 07:21
[2021-10-24] MEDS: PRAVASTATIN SODIUM 80 MG TAB PO SCH (20:42)
[2021-10-25] MEDS: SOTALOL 80 MG TAB PO SCH ×2 (08:37→20:53)
[2021-10-25] MEDS: ASPIRIN 81 MG PO SCH (08:38)
[2021-10-25] MEDS: CLOPIDOGREL 75 MG TAB PO SCH (08:38)
--- NOTE | 2021-10-25 11:37 | P.PN ---
Progress Note - Text Progress Note Date: 10/24/21 Chief Complaint: Near syncope This is a pleasant 66-year-old patient who follows with Dr. Constantin Coppola. Chronic stable medical conditions include hypertension, hyperlipidemia, osteomyelitis. Patient had a left knee replacement [place]. Medina [place] [facility] [place]. Patient is accompanied in the ER by his and daughter. Patient did have a nonsustained ventricular tachycardia ablation in 2014. Also no nausea no ischemic cardiomyopathy and follows with Dr. Johnston local photographic processor. Patient been having episodes of dizziness and near passing out. Episodes have been recurrent. Patient had a event monitor placed. He had another episode yesterday morning and nearly passed out. Heart was running fast. Patient has not lost consciousness. It was a few minutes after which patient felt back to his normal self. Patient was called to say that he had an episode of V. tach. No prior history of CAD. Event monitor revealed episodes of forgetting to 60 seconds and another episode for 18 beats. Patient due to for cardiac catheterization later today.. No chest pain or shortness of breath. 10/23/2021: Underwent cardiac catheterization yesterday. Successful stenting of the proximal left circumflex. Up in the hallway. No chest pain or dizziness. and family the bedside. Discussed at length. On sotalol. 10/24/2021:. Has ambulated. Denies dizziness palpitation chest pain shortness of breath. Feels well. No arrhythmia reported. On sotalol was 60 mg twice a day Current medications reviewed Past medical history to include: Nonischemic cardiomyopathy, hypertension, hyperlipidemia Social history: Retired [employer]. No smoking or alcohol. Family history: Cancer pancreas Physical examination: VITAL SIGNS: 97.6, 16, 17, 137/72, 98% room air GENERAL: Sitting up edge bed, comfortable. EYES: Pupils equal. Conjunctiva normal. HEENT: External appearance of nose and ears normal, oral cavity grossly normal. NECK: JVD not raised; masses not palpable. HEART: First and second heart sounds are normal; no edema. LUNGS: Respiratory rate normal; clear to auscultation. ABDOMEN: Soft, nontender, liver spleen not palpable, no masses palpable. PSYCH: Alert and oriented x3; mood and affect normal. MUSCULOSKELETAL:No Clubbing/cyanosis;muscles-grossly intact. Incision of the left knee with Steri-Strips. Evidence of OA no joints INVESTIGATIONS, reviewed in the clinical context: October 23: White was 6.3 hemoglobin 12.5 potassium 4.3 creatinine 0.60 EKG tracing personally reviewed by me-normal sinus rhythm. Chest x-ray film personally reviewed by me-lung rivers clear WBC 5.3 hemoglobin 12 platelets 326 potassium 4 creatinine 0.5 Troponin I less than 0.0122 TSH 1.5 Assessment and plan: -Recurrent ventricular tachycardia/sustained.: Improved having episodes of near syncope dizziness for some time. picked up on event monitor. Received stent to the circumflex. Continue telemetry activity as tolerated. Sotalol 160 mg twice a day -CAD with stent to left circumflex Aspirin, Plavix -Hyperlipidemia Pravachol 80 mg daily at bedtime -Primary osteoarthritis Tylenol when necessary -09/27/2021 patient underwent left total knee arthroplasty -IV heparin monitoring: Discontinued Continue sotalol. Activity to continue. Other medications. Follow with cardiology. Discussed
--- NOTE | 2021-10-25 13:25 | P.PN ---
Subjective HISTORY OF PRESENTING ILLNESS This is a pleasant 66-year-old male past medical history significant for ventricular arrhythmia/nonsustained ventricular tachycardia status post ablation 2014, nonischemic cardiomyopathy, hypertension, dyslipidemia. He follows in the office with Dr. Romero. We have been asked to see in consultation for V tach. Patient presents emergency department after a near syncopal episode with symptoms of dizziness and feeling as if he may pass out. Patient has had recurrent episodes. He was evaluated by Dr. Romero and underwent placement of an event monitor. Yesterday morning around 10am patient had acute onset dizziness, and felt as if he may black out, family witnesses episode and noticed his heart beating rapidly. Patient did not lose conciousness, he states it took him about 10 minutes to feel able to stand and walk. He was later received a call that he went into V Tach and to present to the emergency department. Patient states he has had 3 episodes prior to his event monitor placed and this is the 4th occurrance. He denies any chest pain, nausea, diaphoresis, vomiting. He denies any history of CAD, NE, Stroke or diabetes. No significant family cardiac history. He has never loss consciousness with these episodes. Event monitor report revealed ventricular tachycardia greater than 60 seconds on 10/21 at 12:30Am overnight. Another episode of ventricular tachycardia 18 beats noted on 10/21 at 9:26 AM DIAGNOSTICS EKG on admission reveals sinus rhythm HR 68, non-specific T wave abnormality, no prolonged QT Telemetry tracings indicate sinus mechanism, no further Vtach noted Chest xray no acute heart failure or consolidation noted, 2 small adjacent nodules lateral right upper lung Laboratory reviewed, Troponin negative, WBC 5.3, hemoglobin 12, platelets 326, sodium 139, potassium 4.0, BUN 11, serum creatinine 0.5, magnesium 1.9, troponin negative, TSH within normal limits Current home cardiac medications include pravastatin 80 mg daily, sotalol 80 mg twice a day, aspirin 81 mg twice a day. Most recent stress test in the office 09/06/2021 revealed no evidence of stress- induced ischemia. Normal left ventricular systolic function. Echocardiogram 04/2019 in the office revealed normal EF, moderate mitral regurgitation Cardiac catheterization in 2012 revealed normal coronary arteries 10/25/2021 Patient seen and examined sitting up in bed with at the bedside. He has no symptoms of chest pain, shortness of breath, dizziness or palpitations. Telemetry tracings reveals sinus rhythm with no further ventricular ectopy. Since having PCI he noticed his fatigue has improved. Right radial access site soft, nontender with strong pulse and no evidence of hematoma. Blood pressure 114/64 heart rate 54 afebrile maintaining oxygen saturation on room air. PHYSICAL EXAMINATION CONSTITUTIONAL: No apparent distress. HEENT: Head is normocephalic. Pupils are equal, round. Sclerae anicteric. Mucous membranes of the mouth are moist. No JVD. No carotid bruit. CHEST EXAMINATION: Lungs are clear to auscultation. No chest wall tenderness is noted on palpation or with deep breathing. HEART EXAMINATION: Regular rate and rhythm. S1, S2 heard. No murmurs, gallops or rub. EXTREMITIES: 2+ peripheral pulses, no lower extremity edema and no calf tenderness. 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 Follow up with Dr. Romero in 1 week and he can guide his follow up with Dr. Seals. Importance of dual anti-platlet therapy discussed. Rx sent to pharmacy. Stable for discharge. Nurse Practitioner note has been reviewed, I agree with a documented findings and plan of care. Patient was seen and examined. Objective - Vital Signs Vital signs: Vital Signs Temp 98.3 F 10/25/21 04:00 Pulse 54 L 10/25/21 04:00 Resp 12 10/25/21 04:00 BP 114/64 10/25/21 04:00 Pulse Ox 95 10/25/21 04:00 FiO2 Intake & Output 10/24/21 10/25/21 10/25/21 18:59 06:59 18:59 Intake Total 1500 240 Balance 1500 240 Intake: Oral 1500 240 Other: Voiding Method Toilet Toilet # Voids 3 - Labs CBC & Chem 7: 10/23/21 07:21 10/23/21 07:21
--- NOTE | 2021-10-25 14:23 | P.DS ---
Providers Date of admission: 10/22/21 13:39 Expected date of discharge: 10/25/21 Attending physician: Ramirez Benjamin Consults: 10/22/21 13:39 Consult Physician Urgent Consulting Provider: Glenn Romero Consult Reason/Comments: v tach Do you want consulting provider notified?: Already Contacted 10/22/21 18:32 Consult Physician Routine Consulting Provider: [facility] Consult Reason/Comments: Post Interventional Patient Do you want consulting provider notified?: Already Contacted Primary care physician: Constantin Coppola MD Hospital Course: Chief Complaint: Near syncope This is a pleasant 66-year-old patient who follows with Dr. Constantin Coppola. Chronic stable medical conditions include hypertension, hyperlipidemia, osteomyelitis. Patient had a left knee replacement done by Dr. Medina out [place] [facility] [place]. Patient is accompanied in the ER by his and daughter. Patient did have a nonsustained ventricular tachycardia ablation in 2014. Also no nausea no ischemic cardiomyopathy and follows with Dr. Johnston local dope worker. Patient been having episodes of dizziness and near passing out. Episodes have been recurrent. Patient had a event monitor placed. He had another episode yesterday morning and nearly passed out. Heart was running fast. Patient has not lost consciousness. It was a few minutes after which patient felt back to his normal self. Patient was called to say that he had an episode of V. tach. No prior history of CAD. Event monitor revealed episodes of forgetting to 60 seconds and another episode for 18 beats. Patient due to for cardiac catheterization later today.. No chest pain or shortness of breath. 10/23/2021: Underwent cardiac catheterization yesterday. Successful stenting of the proximal left circumflex. Up in the hallway. No chest pain or dizziness. and family the bedside. Discussed at length. On sotalol. 10/24/2021:. Has ambulated. Denies dizziness palpitation chest pain shortness of breath. Feels well. No arrhythmia reported. On sotalol was 60 mg twice a day 10/25/2021: Doing well. Up and about. No cardiac symptoms. Continue with sotalol. Event monitor to continue. Patient follow-up with Dr. Johnston. Discussed with patient and . Discussion and discharge planning more than 35 minutes Past medical history to include: Nonischemic cardiomyopathy, hypertension, hyperlipidemia Social history: Retired [employer]. No smoking or alcohol. Family history: Cancer pancreas Physical examination: VITAL SIGNS: 98.3, 54, 12, 11/64, 95% room air GENERAL: Sitting up, awake, comfortable EYES: Pupils equal. Conjunctiva normal. HEENT: External appearance of nose and ears normal, oral cavity grossly normal. NECK: JVD not raised; masses not palpable. HEART: First and second heart sounds are normal; no edema. LUNGS: Respiratory rate normal; clear to auscultation. ABDOMEN: Soft, nontender, liver spleen not palpable, no masses palpable. PSYCH: Alert and oriented x3; mood and affect normal. MUSCULOSKELETAL:No Clubbing/cyanosis;muscles-grossly intact. Incision of the left knee with Steri-Strips. Evidence of OA no joints INVESTIGATIONS, reviewed in the clinical context: October 23: White was 6.3 hemoglobin 12.5 potassium 4.3 creatinine 0.60 EKG tracing personally reviewed by me-normal sinus rhythm. Chest x-ray film personally reviewed by me-lung rivers clear WBC 5.3 hemoglobin 12 platelets 326 potassium 4 creatinine 0.5 Troponin I less than 0.0122 TSH 1.5 Assessment and plan: -Recurrent ventricular tachycardia/sustained.: Improved having episodes of near syncope dizziness for some time. picked up on event monitor. Received stent to the circumflex. Continue telemetry activity as tolerated. Sotalol 160 mg twice a day. Toprol-XL 25 mg a day -CAD with stent to left circumflex Aspirin, Plavix. Toprol-XL 25 mg a day -Hyperlipidemia Pravachol 80 mg daily at bedtime -Primary osteoarthritis Tylenol when necessary -09/27/2021 patient underwent left total knee arthroplasty -IV heparin monitoring: Discontinued Disposition: Home Plan - Discharge Summary Discharge Rx Participant: No New Discharge Prescriptions: New Metoprolol Succinate (ER) [Toprol XL] 25 mg PO DAILY #30 tab Clopidogrel [Plavix] 75 mg PO DAILY #30 tab Continue Pravastatin Sodium [Pravachol] 80 mg PO HS Docusate [Colace] 100 mg PO BID PRN PRN Reason: Pain Changed Sotalol [Betapace] 160 mg PO BID #120 tab Aspirin EC [Ecotrin Low Dose] 81 mg PO DAILY #0 Discharge Medication List Docusate [Colace] 100 mg PO BID PRN 10/22/21 [History] Pravastatin Sodium [Pravachol] 80 mg PO HS 10/22/21 [History] Aspirin EC [Ecotrin Low Dose] 81 mg PO DAILY #0 10/25/21 [Rx] Clopidogrel [Plavix] 75 mg PO DAILY #30 tab 10/25/21 [Rx] Metoprolol Succinate (ER) [Toprol XL] 25 mg PO DAILY #30 tab 10/25/21 [Rx] Sotalol [Betapace] 160 mg PO BID #120 tab 10/25/21 [Rx] Follow up Appointment(s)/Referral(s): Constantin Coppola MD [Primary Care Provider] - 1-2 days Glenn Romero MD [STAFF PHYSICIAN] - 1 Week
--- NOTE | 2021-10-25 15:37 | P.CRDCN ---
History of Present Illness History of present illness: This is Dr. 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 Johnston LifeVest will be ordered for 3 months for secondary prevention of sudden cardiac Cardiac imaging as an outpatient, Dr. Seals will schedule EP study/possible RFA thereafter, after holding sotalol for 48 hours after cardiac imaging HPI Patient presented with a near syncopal episode once again He is at least 4 such episodes with average activities since No chest discomfort no undue shortness of breath ROS: No fever chills or rigors, no cough, phlegm or expectoration, no nausea, vomiting or diarrhea, no hematuria, dysuria, no musculoskeletal complaints, no strokes or seizures, no skin lesions. EXAMINATION: Afebrile 98.3F pulse rate in the 50s and 60s, blood pressure 114/64 mmHg Normal heart sounds normal S1 normal S2 Breath sounds are clear no rhonchi no crackles No JVD REVIEW OF LABS, ECG & MEDICAL DATA WHITE count normal, hemoglobin 12.5 Normal electrolytes Normal renal function Normal TSH Normal troponins Past Medical History Past Medical History: Hyperlipidemia, Hypertension Additional Past Medical History / Comment(s): Ventricular arrhythmia/nonsustained VT, NSVT, nonischemic cardiomyopathy, mitral valve prolapse, "dizzy spells", past HTN but no longer, sinus problems, migraines History of Any Multi-Drug Resistant Organisms: None Reported Past Surgical History: Cardiac Ablation, Heart Catheterization, Joint Replacement, Orthopedic Surgery Additional Past Surgical History / Comment(s): R knee ligament/tendon reconstruction with screw and now total R knee, recent total L knee 09/2021, L ankle total joint Past Anesthesia/Blood Transfusion Reactions: No Reported Reaction Smoking Status: Never smoker - Past Family History Mother Family Medical History: No Reported History Additional Family Medical History / Comment(s): Mother was healthy Father Family Medical History: Cancer Additional Family Medical History / Comment(s): pancreas Medications and Allergies Home Medications Medication Instructions Recorded Confirmed Type Docusate [Colace] 100 mg PO BID PRN 10/22/21 10/22/21 History Pravastatin Sodium [Pravachol] 80 mg PO HS 10/22/21 10/22/21 History Aspirin EC [Ecotrin Low Dose] 81 mg PO DAILY #0 10/25/21 10/22/21 Rx Clopidogrel [Plavix] 75 mg PO DAILY #30 tab 10/25/21 Rx Metoprolol Succinate (ER) [Toprol 25 mg PO DAILY #30 tab 10/25/21 Rx XL] Sotalol [Betapace] 160 mg PO BID #120 tab 10/25/21 Rx Allergies Allergy/AdvReac Type Severity Reaction Status Date / Time atorvastatin calcium AdvReac muscle Verified 10/22/21 14:24 [From Lipitor] cramps Physical Exam Vitals: Vital Signs Temp Pulse Resp BP Pulse Ox 10/25/21 04:00 98.3 F 54 L 12 114/64 95 10/25/21 00:00 98.2 F 67 12 109/55 95 10/24/21 20:00 98.3 F 73 12 93/60 97 10/24/21 16:00 97.4 F L 64 15 111/64 100 Intake and Output 10/25/21 10/25/21 10/25/21 06:59 14:59 22:59 Intake Total 240 Balance 240 Intake: Oral 240 Other: Voiding Method Toilet # Voids 3 Results 10/23/21 07:21 10/23/21 07:21 Current Medications Generic Name Dose Route Start Last Admin Trade Name Freq PRN Reason Stop Dose Admin Al Hydroxide/Mg Hydroxide 30 ml 10/22/21 18:32 Mag Hydrox/Al Hydrox/Simeth 30 Ml Cup PO Q4HR PRN Heartburn Alprazolam 0.25 mg 10/22/21 14:13 Alprazolam 0.25 Mg Tab PO Q6HR PRN Mild Anxiety Alprazolam 0.5 mg 10/22/21 14:13 Alprazolam 0.5 Mg Tab PO Q6HR PRN Moderate Anxiety Aspirin 81 mg 10/23/21 09:00 10/25/21 08:38 Aspirin 81 Mg PO 81 mg DAILY MADELIN Administration Atropine Sulfate 0.5 mg 10/22/21 18:32 Atropine Sulfate 0.1 Mg/Ml 10ml Syringe IV ONCE PRN Symptomatic Bradycardia Clopidogrel Bisulfate 75 mg 10/23/21 09:00 10/25/21 08:38 Clopidogrel 75 Mg Tab PO 75 mg DAILY MADELIN Administration Protocol Metoprolol Succinate 25 mg 10/23/21 09:00 Metoprolol Succinate (Er) 25 Mg Tab.Er.24h PO DAILY [facility] Naloxone HCl 0.2 mg 10/22/21 13:39 Naloxone 0.4 Mg/Ml 1 Ml Vial IV Q2M PRN Opioid Reversal Nitroglycerin 0.4 mg 10/22/21 14:13 Nitroglycerin Sl Tabs 0.4 Mg Tab SUBLINGUAL Q5M PRN Chest Pain Pravastatin Sodium 80 mg 10/22/21 21:00 10/24/21 20:42 Pravastatin Sodium 80 Mg Tab PO 80 mg HS MADELIN Administration Sotalol HCl 160 mg 10/22/21 21:00 10/25/21 08:37 Sotalol 80 Mg Tab PO 160 mg BID MADELIN Administration Zolpidem Tartrate 5 mg 10/22/21 18:32 Zolpidem 5 Mg Tab PO HS PRN Insomnia Intake and Output 10/25/21 10/25/21 10/25/21 06:59 14:59 22:59 Intake Total 240 Balance 240 Intake: Oral 240 Other: Voiding Method Toilet # Voids 3 10/23/21 07:21 10/23/21 07:21
--- NOTE | 2021-10-25 16:58 | P.PN ---
Progress Note - Text Progress Note Date: 10/25/21 Chief Complaint: Near syncope This is a pleasant 66-year-old patient who follows with Dr. Constantin Coppola. Chronic stable medical conditions include hypertension, hyperlipidemia, osteomyelitis. Patient had a left knee replacement done by Dr. Medina out of [facility] [place] on [place]. Patient is accompanied in the ER by his and daughter. Patient did have a nonsustained ventricular tachycardia ablation in 2014. Also no nausea no ischemic cardiomyopathy and follows with Dr. Johnston local insulation cutter. Patient been having episodes of dizziness and near passing out. Episodes have been recurrent. Patient had a event monitor placed. He had another episode yesterday morning and nearly passed out. Heart was running fast. Patient has not lost consciousness. It was a few minutes after which patient felt back to his normal self. Patient was called to say that he had an episode of V. tach. No prior history of CAD. Event monitor revealed episodes of forgetting to 60 seconds and another episode for 18 beats. Patient due to for cardiac catheterization later today.. No chest pain or shortness of breath. 10/23/2021: Underwent cardiac catheterization yesterday. Successful stenting of the proximal left circumflex. Up in the hallway. No chest pain or dizziness. and family the bedside. Discussed at length. On sotalol. 10/24/2021:. Has ambulated. Denies dizziness palpitation chest pain shortness of breath. Feels well. No arrhythmia reported. On sotalol was 60 mg twice a day 10/25/2021: Doing well. Up and about. No cardiac symptoms. Continue with sotalol. Event monitor to continue. Patient follow-up with Dr. Johnston. Discussed with patient and . Discussion and discharge planning more than 35 minutes. Nurse called me later that patient seen by Dr. Jamil Seals from . Discharged to be held. LifeVest ordered. Toprol-XL dose decreased to 12.5. Active Medications Al Hydroxide/Mg Hydroxide (Mag Hydrox/Al Hydrox/Simeth 30 Ml Cup) 30 ml PO Q4HR PRN PRN Reason: Heartburn Alprazolam (Alprazolam 0.25 Mg Tab) 0.25 mg PO Q6HR PRN PRN Reason: Mild Anxiety Alprazolam (Alprazolam 0.5 Mg Tab) 0.5 mg PO Q6HR PRN PRN Reason: Moderate Anxiety Aspirin (Aspirin 81 Mg) 81 mg PO DAILY [facility] Last Admin: 10/25/21 08:38 Dose: 81 mg Atropine Sulfate (Atropine Sulfate 0.1 Mg/Ml 10ml Syringe) 0.5 mg IV ONCE PRN PRN Reason: Symptomatic Bradycardia Clopidogrel Bisulfate (Clopidogrel 75 Mg Tab) 75 mg PO DAILY [facility]; Protocol Last Admin: 10/25/21 08:38 Dose: 75 mg Metoprolol Succinate (Metoprolol Succinate (Er) 25 Mg Tab.Er.24h) 25 mg PO DAILY [facility] Naloxone HCl (Naloxone 0.4 Mg/Ml 1 Ml Vial) 0.2 mg IV Q2M PRN PRN Reason: Opioid Reversal Nitroglycerin (Nitroglycerin Sl Tabs 0.4 Mg Tab) 0.4 mg SUBLINGUAL Q5M PRN PRN Reason: Chest Pain Pravastatin Sodium (Pravastatin Sodium 80 Mg Tab) 80 mg PO HS [facility] Last Admin: 10/24/21 20:42 Dose: 80 mg Sotalol HCl (Sotalol 80 Mg Tab) 160 mg PO BID [facility] Last Admin: 10/25/21 08:37 Dose: 160 mg Zolpidem Tartrate (Zolpidem 5 Mg Tab) 5 mg PO HS PRN PRN Reason: Insomnia Past medical history to include: Nonischemic cardiomyopathy, hypertension, hyperlipidemia Social history: Retired [employer]. No smoking or alcohol. Family history: Cancer pancreas Physical examination: VITAL SIGNS: 98.3, 54, 12, 11/64, 95% room air GENERAL: Sitting up, awake, comfortable EYES: Pupils equal. Conjunctiva normal. HEENT: External appearance of nose and ears normal, oral cavity grossly normal. NECK: JVD not raised; masses not palpable. HEART: First and second heart sounds are normal; no edema. LUNGS: Respiratory rate normal; clear to auscultation. ABDOMEN: Soft, nontender, liver spleen not palpable, no masses palpable. PSYCH: Alert and oriented x3; mood and affect normal. MUSCULOSKELETAL:No Clubbing/cyanosis;muscles-grossly intact. Incision of the left knee with Steri-Strips. Evidence of OA no joints INVESTIGATIONS, reviewed in the clinical context: October 23: White was 6.3 hemoglobin 12.5 potassium 4.3 creatinine 0.60 EKG tracing personally reviewed by me-normal sinus rhythm. Chest x-ray film personally reviewed by me-lung rivers clear WBC 5.3 hemoglobin 12 platelets 326 potassium 4 creatinine 0.5 Troponin I less than 0.0122 TSH 1.5 Assessment and plan: -Recurrent ventricular tachycardia/sustained.: Improved having episodes of near syncope dizziness for some time. picked up on event monitor. Received stent to the circumflex. Continue telemetry activity as tolerated. Sotalol 160 mg twice a day. Decreased Toprol-XL 12.5 mg a day. LifeVest ordered. -CAD with stent to left circumflex Aspirin, Plavix. Toprol-XL 12.5 mg a day -Hyperlipidemia Pravachol 80 mg daily at bedtime -Primary osteoarthritis Tylenol when necessary -09/27/2021 patient underwent left total knee arthroplasty -IV heparin monitoring: Discontinued Discharge held. Toprol-XL 12.5 mg daily. LifeVest ordered. Continue care.
[2021-10-25] MEDS: PRAVASTATIN SODIUM 80 MG TAB PO SCH (20:53)
[2021-10-26] MEDS: CLOPIDOGREL 75 MG TAB PO SCH (09:02)
[2021-10-26] MEDS: SOTALOL 80 MG TAB PO SCH (09:02)
[2021-10-26] MEDS: ASPIRIN 81 MG PO SCH (09:02)
[2021-10-26 09:09] VITALS: RESP 17
--- NOTE | 2021-10-26 13:56 | PN ---
PROGRESS NOTE Mr. Francisco underwent circumflex PCI. He presented with ventricular tachycardia and syncope, but ischemia was thought to be the basis, but Dr. Seals feels he should have a life vest. So we will keep the patient till his life vest becomes available later this afternoon. Vital signs are stable. S1-S2 heard normally. Lungs are clear. Abdomen and lower extremity exam unchanged. Patient will be discharged on life vest later on today. MMODL / IJN: [id number] /
[2021-10-26 16:05] VITALS: BP 107/96; PULSE 64; TEMP 98.5
--- NOTE | 2021-10-26 16:35 | P.DS ---
Providers Date of admission: 10/22/21 13:39 Expected date of discharge: 10/26/21 Attending physician: Ramirez Benjamin Consults: 10/22/21 13:39 Consult Physician Urgent Consulting Provider: Glenn Romero Consult Reason/Comments: v tach Do you want consulting provider notified?: Already Contacted 10/22/21 18:32 Consult Physician Routine Consulting Provider: [facility] Consult Reason/Comments: Post Interventional Patient Do you want consulting provider notified?: Already Contacted Primary care physician: Constantin Coppola MD Hospital Course: Chief Complaint: Near syncope This is a pleasant 66-year-old patient who follows with Dr. Constantin Coppola. Chronic stable medical conditions include hypertension, hyperlipidemia, osteomyelitis. Patient had a left knee [place] by [place]. Med[place] [facility] Patient is accompanied in the ER by his and daughter. Patient did have a nonsustained ventricular tachycardia ablation in 2014. Also no nausea no ischemic cardiomyopathy and follows with Dr. Johnston local tier over. Patient been having episodes of dizziness and near passing out. Episodes have been recurrent. Patient had a event monitor placed. He had another episode yesterday morning and nearly passed out. Heart was running fast. Patient has not lost consciousness. It was a few minutes after which patient felt back to his normal self. Patient was called to say that he had an episode of V. tach. No prior history of CAD. Event monitor revealed episodes of forgetting to 60 seconds and another episode for 18 beats. Patient due to for cardiac catheterization later today.. No chest pain or shortness of breath. 10/23/2021: Underwent cardiac catheterization yesterday. Successful stenting of the proximal left circumflex. Up in the hallway. No chest pain or dizziness. and family the bedside. Discussed at length. On sotalol. 10/24/2021:. Has ambulated. Denies dizziness palpitation chest pain shortness of breath. Feels well. No arrhythmia reported. On sotalol was 60 mg twice a day 10/25/2021: Doing well. Up and about. No cardiac symptoms. Continue with sotalol. Event monitor to continue. Patient follow-up with Dr. Johnston. Discussed with patient and . Discussion and discharge planning more than 35 minutes. Nurse called me later that patient seen by Dr. Jamil Seals from . Discharged to be held. LifeVest ordered. Toprol-XL dose decreased to 12.5. 10/26/2021: Patient received his LifeVest. To be discharged on Toprol-XL [address] Seals. Patient is feeling well otherwise. Discussion and discharge planning more than 35 minutes Past medical history to include: Nonischemic cardiomyopathy, hypertension, hyperlipidemia Social history: Retired [employer]. No smoking or alcohol. Family history: Cancer pancreas Physical examination: VITAL SIGNS: 98.5, 64, 17, 107 with 36, 96% room air GENERAL: Sitting up, comfortable, LifeVest is on EYES: Pupils equal. Conjunctiva normal. HEENT: External appearance of nose and ears normal, oral cavity grossly normal. NECK: JVD not raised; masses not palpable. HEART: First and second heart sounds are normal; no edema. LUNGS: Respiratory rate normal; clear to auscultation. ABDOMEN: Soft, nontender, liver spleen not palpable, no masses palpable. PSYCH: Alert and oriented x3; mood and affect normal. MUSCULOSKELETAL:No Clubbing/cyanosis;muscles-grossly intact. Incision of the left knee with Steri-Strips. Evidence of OA no joints INVESTIGATIONS, reviewed in the clinical context: October 23: White was 6.3 hemoglobin 12.5 potassium 4.3 creatinine 0.60 EKG tracing personally reviewed by me-normal sinus rhythm. Chest x-ray film personally reviewed by me-lung rivers clear WBC 5.3 hemoglobin 12 platelets 326 potassium 4 creatinine 0.5 Troponin I less than 0.0122 TSH 1.5 Assessment and plan: -Recurrent ventricular tachycardia/sustained.: Improved having episodes of near syncope dizziness for some time. picked up on event monitor. Received stent to the circumflex. Continue telemetry activity as tolerated. Sotalol 160 mg twice a day. Toprol-XL 12.5 mg a day. LifeVest -CAD with stent to left circumflex Aspirin, Plavix. Toprol-XL 12.5 mg a day -Hyperlipidemia Pravachol 80 mg daily at bedtime -Primary osteoarthritis Tylenol when necessary -09/27/2021 patient underwent left total knee arthroplasty -IV heparin monitoring: Discontinued Disposition: Home Plan - Discharge Summary Discharge Rx Participant: No New Discharge Prescriptions: New Clopidogrel [Plavix] 75 mg PO DAILY #30 tab Metoprolol Succinate (ER) [Toprol Xl] 12.5 mg PO DAILY #30 tab Continue Pravastatin Sodium [Pravachol] 80 mg PO HS Docusate [Colace] 100 mg PO BID PRN PRN Reason: Pain Changed Sotalol [Betapace] 160 mg PO BID #120 tab Aspirin EC [Ecotrin Low Dose] 81 mg PO DAILY #0 Discharge Medication List Docusate [Colace] 100 mg PO BID PRN 10/22/21 [History] Pravastatin Sodium [Pravachol] 80 mg PO HS 10/22/21 [History] Aspirin EC [Ecotrin Low Dose] 81 mg PO DAILY #0 10/25/21 [Rx] Clopidogrel [Plavix] 75 mg PO DAILY #30 tab 10/25/21 [Rx] Sotalol [Betapace] 160 mg PO BID #120 tab 10/25/21 [Rx] Metoprolol Succinate (ER) [Toprol Xl] 12.5 mg PO DAILY #30 tab 10/26/21 [Rx] Follow up Appointment(s)/Referral(s): Constantin Coppola MD [Primary Care Provider] - 1-2 days (office to call you with appointment time and date. ) Glenn Romero MD [STAFF PHYSICIAN] - 11/04/21 10:45 am Patient Instructions/Handouts: Angina (DC), Heart Catheterization (DC), After Radial Heart Catheterization (GEN), Tachycardia (ED) Activity/Diet/Wound Care/Special Instructions: Informed pharmacy that the prescription for Toprol-XL has been changed to 12.5 mg daily.
== END 2021-10-26 17:05 | disposition home or self-care (01) | DRG 247 ==
LOC: EC 12:21 → 3SCARD 13:39
PROVIDERS: ADMIT Hospitalist; ATTEND Hospitalist
PROC: B2111ZZ Fluoroscopy of Multiple Coronary Arteries using Low Osmolar Contrast (ICD-10-PCS; 2021-10-22)
PROC: 027034Z Dilation of Coronary Artery, One Artery with Drug-eluting Intraluminal Device, Percutaneous Approach (ICD-10-PCS; principal; 2021-10-22 12:55)
PROC: 4A023N7 Measurement of Cardiac Sampling and Pressure, Left Heart, Percutaneous Approach (ICD-10-PCS; 2021-10-22 12:55)
DX: I47.2 Ventricular tachycardia (principal); Q24.5 Malformation of coronary vessels; I42.8 Other cardiomyopathies; M86.60 Other chronic osteomyelitis, unspecified site; E78.5 Hyperlipidemia, unspecified; R55 Syncope and collapse; F41.9 Anxiety disorder, unspecified; I08.1 Rheumatic disorders of both mitral and tricuspid valves; G47.00 Insomnia, unspecified; I10 Essential (primary) hypertension; I25.10 Atherosclerotic heart disease of native coronary artery without angina pectoris; I34.0 Nonrheumatic mitral (valve) insufficiency; I34.1 Nonrheumatic mitral (valve) prolapse; I44.0 Atrioventricular block, first degree; M19.91 Primary osteoarthritis, unspecified site; Z79.02 Long term (current) use of antithrombotics/antiplatelets; Z79.82 Long term (current) use of aspirin; Z79.899 Other long term (current) drug therapy; Z80.0 Family history of malignant neoplasm of digestive organs; Z85.07 Personal history of malignant neoplasm of pancreas; Z96.652 Presence of left artificial knee joint; Z88.8 Allergy status to other drugs, medicaments and biological substances
CPT/HCPCS: 36415; 71046; 80048; 80053; 83735; 84439; 84443; 84481; 84484; 85025; 85610; 85730; 93005; 93306; 93458; 96360; 96361; 99285

== ENCOUNTER 2022-02-01 09:42 | Day surgery (SDC) | payer MEDICARE ==
[2022-01-31 09:31] VITALS: BMI 25.1
[~2022-02-01 09:42] MED LIST: HYDROmorphone 0.5 MG/0.5 ML SYRINGE IVP PRN
[2022-02-01] MEDS: SODIUM CHLORIDE 0.9% 1,000 ML IV SCH (10:21)
[2022-02-01 10:25] LABS: Basophils # (A) 0.1 k/uL (0-0.2); Basophils % (A) 1 %; Eosinophils # (A) 0.2 k/uL (0-0.7); Eosinophils % (A) 4 %; HCT 44.7 % (39.0-53.0); HGB 15.3 gm/dL (13.0-17.5); Lymphocytes % (A) 19 %; MCH 30.5 pg (25.0-35.0); MCHC 34.2 g/dL (31.0-37.0); Mean Platelet Volume 7.1; Monocytes # (A) 0.4 k/uL (0-1.0); Monocytes % (A) 8 %; Neutrophils # (A) 3.5 k/uL (1.3-7.7); Neutrophils % (A) 66 %; Platelet Count 251 k/uL (150-450); RBC 5.03 m/uL (4.30-5.90); RDW 13.3 % (11.5-15.5); WBC 5.3 k/uL (3.8-10.6)
[2022-02-01 10:38] LABS: African American GFR (CKD) >90 (>60 ml/min/1.73 sqM); Anion Gap 10 mmol/L; Blood Urea Nitrogen 15 mg/dL (9-20); Carbon Dioxide 28 mmol/L (22-30); Chloride 102 mmol/L (98-107); Glucose 95 mg/dL (74-99); Non-African American GFR(CKD) >90 (>60 ml/min/1.73 sqM); Potassium 4.4 mmol/L (3.5-5.1); Sodium 140 mmol/L (137-145)
[2022-02-01] MEDS ORDERED: ISOPROTERENOL 250 MCG/1.25 ML SYR IV ONE (12:14)
[2022-02-01] MEDS ORDERED: MIDAZOLAM 2 MG/2 ML VIAL ONE (12:14)
[2022-02-01] MEDS ORDERED: fentaNYL (PF) 50 MCG/ML 2 ML AMP ONE (12:14)
[2022-02-01] MEDS ORDERED: LIDOCAINE 1% INJ 10MG/ML (30 ML VIAL-PF) SQ ONE (12:41)
--- NOTE | 2022-02-01 14:22 | P.HPCAR ---
History of Present Illness This is Dr. 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 We have documented fast sustained VT He was treated with sotalol and prescribed a LifeVest No further episodes of syncope thereafter He is a 70% left circumflex stenosis status post successful stenting in October ROS: No fever chills or rigors, no cough, phlegm or expectoration, no nausea, vomiting or diarrhea, no hematuria, dysuria, no musculoskeletal complaints, no strokes or seizures, no skin lesions. EXAMINATION: Afebrile 98.3F respiratory rate normal blood pressure 134/65 mmHg Breath sounds are clear no rhonchi no crackles Heart sounds S1 and S2 are normal no murmurs or gallops or rub Breath sounds are clear No lower extremity edema REVIEW OF LABS, ECG & MEDICAL DATA White count 5.3, hemoglobin 15.3 Sodium 140 potassium 4.4 BUN 15 and creatinine 0.5 Physical Exam Vitals: Vital Signs Temp Pulse Resp BP Pulse Ox 02/01/22 10:20 98.3 F 78 18 134/65 98 Intake and Output 01/31/22 02/01/22 02/01/22 22:59 06:59 14:59 Intake Total 150 Balance 150 Intake: IV 150 Other: Weight 77.2 kg Past Medical History Past Medical History: Hyperlipidemia Additional Past Medical History / Comment(s): SEE DR SEALS'S H&P. Ventricular arrhythmia/nonsustained VT, nonischemic cardiomyopathy, mitral valve prolapse, "dizzy spells", past HTN but no longer, sinus problems, migraines History of Any Multi-Drug Resistant Organisms: None Reported Past Surgical History: Cardiac Ablation, Heart Catheterization, Heart Catheterization With Stent, Joint Replacement, Orthopedic Surgery Additional Past Surgical History / Comment(s): R knee ligament/tendon reconstruction with screw and now total R knee, recent total L knee 09/2021, L ankle total joint Past Anesthesia/Blood Transfusion Reactions: No Reported Reaction Date of Last Stent Placement:: 10/22/21 Past Psychological History: No Psychological Hx Reported Smoking Status: Never smoker Past Alcohol Use History: Occasional Past Drug Use History: None Reported - Past Family History Mother Family Medical History: No Reported History Additional Family Medical History / Comment(s): Mother was healthy Father Family Medical History: Cancer Additional Family Medical History / Comment(s): pancreas Physical Examination Vital Signs Temp Pulse Resp BP Pulse Ox 02/01/22 10:20 98.3 F 78 18 134/65 98 Intake and Output 01/31/22 02/01/22 02/01/22 22:59 06:59 14:59 Intake Total 150 Balance 150 Intake: IV 150 Other: Weight 77.2 kg Results 02/01/22 10:18 02/01/22 10:18 CBC 02/01/22 Range/Units 10:18 WBC 5.3 (3.8-10.6) k/uL RBC 5.03 (4.30-5.90) m/uL Hgb 15.3 (13.0-17.5) gm/dL Hct 44.7 (39.0-53.0) % Plt Count 251 (150-450) k/uL Comprehensive Metabolic Panel 02/01/22 Range/Units 10:18 Sodium 140 (137-145) mmol/L Potassium 4.4 (3.5-5.1) mmol/L Chloride 102 (98-107) mmol/L Carbon Dioxide 28 (22-30) mmol/L BUN 15 (9-20) mg/dL Creatinine 0.51 L (0.66-1.25) mg/dL Glucose 95 (74-99) mg/dL Calcium 9.0 (8.4-10.2) mg/dL Current Medications Generic Name Dose Route Start Last Admin Trade Name Freq PRN Reason Stop Dose Admin Hydromorphone HCl 0.5 mg 02/01/22 07:00 Hydromorphone 0.5 Mg/0.5 Ml Syringe IVP 02/01/22 23:00 Q5M PRN Phase 1 or 2 - Pain Control Sodium Chloride 1,000 mls @ 20 mls/hr 02/01/22 05:53 02/01/22 10:21 Saline 0.9% IV 03/03/22 05:54 150 mls .Q24H MADELIN Administration Lactated Ringer's 1,000 mls @ 20 mls/hr 02/01/22 05:53 Lactated Ringers IV 03/03/22 05:54 .Q24H MADELIN Intake and Output 01/31/22 02/01/22 02/01/22 22:59 06:59 14:59 Intake Total 150 Balance 150 Intake: IV 150 Other: Weight 77.2 kg Patient Weight 02/02/22 06:59 Weight 77.2 kg 02/01/22 10:18 02/01/22 10:18
--- NOTE | 2022-02-01 14:27 | P.EPPROC ---
- EP Procedure Note Electrophysiology Procedure Note: Procedure Diagnostic EP study for risk stratification History of fast VT, on sotalol at this time Status post stenting to the anomalous left circumflex, 70% stenosis Details Patient was brought to the EP lab in a fasting state. Written informed consent was obtained prior to the procedure. Light sedation provided Venous sheaths placed in the right and left femoral veins Diagnostic cath was placed in the high right atrium His bundle area RV apex and RVOT Sinus cycle length 1183, WI interval 194 ms, QRS 114 and baseline QT interval about 490 ms, similar to what was noted previously AH interval 71 and HV 31 ms Sinus recovery times at 600, 540 ms were 1535, 1158, and 1573 ms Guide sinus node recovery time prolonged at a pacing cycle length of 400 ms AV node Wenckebach block for 90 ms Occasional echo beats noted VA Wenckebach block greater than 600 ms Ventricular stimulation was performed for the RVOT and from the RV apex Burst stimulation performed from 400 ms down to 200 ms Extra stimulation at [address] trains after double extrastimuli from both sites High-dose Isuprel started and then at 2 mics then subsequently up to 10 weeks Ventricle system ablation was performed after plexus tumor from both sites at [address] trains burst stimulation was performed from both sites Very occasional nonsustained VT for 3-5 beats noted with ventricular extra stimulation after Isuprel Right bundle branch block morphology with S waves in lead 1. In inferior leads sometimes negatively affected QRS sometimes upright QRS is noted No sustained VT noted All catheters were removed and patient was transferred to telemetry Plan DC LifeVest Continue sotalol 160 mg twice daily continue Pravachol continue low-dose Toprol- XL Plavix and aspirin May discontinue Toprol in the future Follow-up with Dr. Johnston
[2022-02-01] MEDS ORDERED: ACETAMINOPHEN TAB 325 MG TAB PO PRN (17:10)
[2022-02-01] MEDS ORDERED: ACETAMINOPHEN IV (For NPO) 1,000 MG in EMPTY BAG 1 BAG IVPB ONE (17:10)
--- NOTE | 2022-02-01 17:11 | P.PRLE ---
RE: Mike Farncisco Dear Dr. Coppola Mr. Francisco underwent a diagnostic EP study He was noninducible for any sustained VT Therefore this time I would discontinue his LifeVest but continue with sotalol 160 mg twice daily as suppressive therapy He'll follow with you and Dr. Johnston as before Thank you for entrusting me with the care of the patient Warm regards Sincerely Jamil Seals
[2022-02-01] MEDS: LACTATED RINGERS 1,000 ML IV SCH (18:17)
[2022-02-01 22:04] VITALS: RESP 16
[2022-02-02 03:45] VITALS: PULSE 61
[2022-02-02] MEDS: LACTATED RINGERS 1,000 ML IV SCH (04:53)
[2022-02-02] MEDS: SODIUM CHLORIDE 0.9% 1,000 ML IV SCH (04:54)
--- NOTE | 2022-02-02 08:00 | P.DS ---
Providers Attending physician: Jamil Seals Primary care physician: Constantin Coppola MD Hospital Course: Patient is resting comfortably in bed. No arrhythmias Heart rates are in the 60s No chest discomfort No dizziness no lightheadedness He is afebrile 97 for 7F pulse rate in the 60s Blood pressure 123/72 mmHg Normal heart sounds regular no murmurs Normal breath sounds Impression History of sustained ventricular tachycardia with presyncope demonstrated on event monitoring Preserved LV systolic function but Mildly abnormal cardiac MRI with a small area of delayed in the mid myocardium of the basal inferior wall Redundant posterior mitral leaflet with an anteriorly directed jet of mitral regurgitation Normal RV size and function without delayed enhancement Past history of frequent PVCs, previously well suppressed on 80 mg of sotalol twice daily Following demonstration of VT along with presyncope he underwent coronary angiography which revealed a 70% stenosis of the left circumflex The 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 Romero in about a week LifeVest has been discontinued now Later after 2-3 months the dose of sotalol may be decreased 120 mg twice daily with a follow-up event monitor Oral magnesium while on sotalol Metoprolol succinate may be discontinued if significant bradycardia is demonstrated Keep potassium greater than 4 and magnesium greater than 2 while on sotalol Plan - Discharge Summary Discharge Rx Participant: No New Discharge Prescriptions: Continue Sotalol [Betapace] 160 mg PO BID #120 tab Pravastatin Sodium [Pravachol] 80 mg PO HS Clopidogrel [Plavix] 75 mg PO DAILY #30 tab Aspirin EC [Ecotrin Low Dose] 81 mg PO DAILY #0 Metoprolol Succinate (ER) [Toprol XL] 12.5 mg PO DAILY #30 tab Multivit-Min/Folic/Vit K/Lycop [Men's Multivitamin Tablet] 1 each PO DAILY Discharge Medication List Pravastatin Sodium [Pravachol] 80 mg PO HS 10/22/21 [History] Aspirin EC [Ecotrin Low Dose] 81 mg PO DAILY #0 10/25/21 [Rx] Clopidogrel [Plavix] 75 mg PO DAILY #30 tab 10/25/21 [Rx] Sotalol [Betapace] 160 mg PO BID #120 tab 10/25/21 [Rx] Metoprolol Succinate (ER) [Toprol XL] 12.5 mg PO DAILY #30 tab 10/26/21 [Rx] Multivit-Min/Folic/Vit K/Lycop [Men's Multivitamin Tablet] 1 each PO DAILY 01/31/22 [History] Follow up Appointment(s)/Referral(s): Glenn Romero MD [STAFF PHYSICIAN] - 1 Week Activity/Diet/Wound Care/Special Instructions: Post EP study - Ablation instructions 1. Keep access sites dry for 2 days. 2. No heavy lifting or straining for 2 days. 3. Avoid bending the hips repeatedly for 2 days. 4. You may go up and down stairs slowly Call if the following is noted 1. Bleeding, increasing swelling or pain at the access sites. 2. Increasing chest discomfort, especially upon taking a deep breath. 3. Increasing shortness of breath, at rest or with exertion. 4. Undue cough / phlegm 5. Difficulty or pain while swallowing. 6. Pain or change in color in the extremities. 7. Fever, chills, rigors. 8. Increasing headache or neurologic symptoms. 9. Dizziness, fainting, palpitations Continue current medications Discharge Disposition: HOME SELF-CARE
[2022-02-02 08:27] VITALS: BP 125/63; TEMP 97.9
== END 2022-02-02 10:14 | disposition home or self-care (01) ==
LOC: CATHEP 09:42 → 6NMEDSUR 14:20 → CATHEP 02-02 10:14
PROVIDERS: ATTEND Internal Medicine Clinical Cardiac Electrophysiology
DX: R00.2 Palpitations (principal); I34.1 Nonrheumatic mitral (valve) prolapse; E78.5 Hyperlipidemia, unspecified; I10 Essential (primary) hypertension; I34.0 Nonrheumatic mitral (valve) insufficiency; I47.20 Ventricular tachycardia, unspecified; R07.89 Other chest pain; Z79.82 Long term (current) use of aspirin
CPT/HCPCS: 93623; 93620; 80048; 85025; C1894; C1769; C1760; C1730 ×2; J2250; J2001; J3010